=== PATIENT | female | born 1985 ===

== ENCOUNTER → 2023-06-06 | Outpatient (CLI) | payer MEDICARE, OTHER | END | disposition home or self-care (01) | LOC: LAB SHORT 12:06 → EDBD 12:06 → LAB 12:06 → LAB SHORT 06-07 12:06 | DX: S81.801A Unspecified open wound, right lower leg, initial encounter (principal); L57.8 Other skin changes due to chronic exposure to nonionizing radiation | CPT/HCPCS: 87070; 87205 ==

== ENCOUNTER → 2023-08-06 | Outpatient (CLI) | payer MEDICARE, OTHER | LOC: LAB 10:30 → LAB SHORT 10:30 | DX: L08.9 Local infection of the skin and subcutaneous tissue, unspecified (principal); L88 Pyoderma gangrenosum; R60.0 Localized edema | CPT/HCPCS: 87070; 87205 ==

== ENCOUNTER → 2023-08-13 | Outpatient (CLI) | payer MEDICARE, OTHER | LOC: LAB 09:30 → LAB SHORT 09:30 | DX: L08.9 Local infection of the skin and subcutaneous tissue, unspecified (principal); L88 Pyoderma gangrenosum; L73.2 Hidradenitis suppurativa; R60.0 Localized edema | CPT/HCPCS: 87070; 87205 ==